=== PATIENT | male | born 1950 | race Caucasian/White ===

== ENCOUNTER 2018-05-07 19:27 | Emergency (ER) | payer MEDICARE, OTHER ==
[~2018-05-07] VITALS: Ht 175.3 cm; Wt 117.9 kg
[2018-05-07 19:55] LABS: BILIRUBIN,URINE NEGATIVE (NEGATIVE); CLARITY,URINE CLEAR; COLOR,URINE YELLOW; GLUCOSE, URINE (UA) NEGATIVE (NEGATIVE); KETONES,URINE NEGATIVE (NEGATIVE); LEUKOCYTE ESTERASE ,URINE NEGATIVE (NEGATIVE); NITRITE,URINE NEGATIVE (NEGATIVE); PH,URINE 5 (5-9); PROTEIN,URINE NEGATIVE (NEGATIVE); UROBILINOGEN,URINE NORMAL (NORMAL)
[2018-05-07 20:04] LABS: WBC,URINE 0-2 /HPF
[2018-05-07 20:05] LABS: BACTERIA,URINE TRACE /HPF
--- NOTE | 2018-05-07 20:31 | Diagnostic Imaging Report ---
INDICATION: Back pain, spasms, more on the right side. TECHNIQUE: AP, lateral and spot imaging of the lumbar spine. CORRELATION STUDY: None. FINDINGS: Lumbar spinal alignment is relatively anatomic. Lumbar vertebral body heights are maintained. Very mild anterior wedging at the L1-T12 levels, nonacute. Mild multilevel disc space narrowing but most severe at L5-S1 level. Rather prominent anterior osteophytes are noted with some areas of bridging osteophytes present. Hypertrophic facet arthropathy at the L5-S1 levels. Findings suspect for some degree of osseous narrowing of the foramina and spinal canal at this level. SI joints are unremarkable. Mild degenerative changes of bilateral hip joints. IMPRESSION: No radiographic evidence for acute bony abnormality of the lumbar spine. Chronic appearing changes about the lumbar spine, including bridging osteophytes and hypertrophic facet arthropathy. Component of foraminal and/or spinal canal narrowing, particularly at the L5-S1 level owing to degenerative changes not excluded. Dictated by: Dictated on workstation # [id number]
--- NOTE | 2018-05-07 20:42 | ED Back Pain ---
General Chief Complaint: Back Problems Stated Complaint: BACK SPASMS/PAIN,"KIDNEY AREA" History of Present Illness Date Seen by Provider: May 07, 2018 Time Seen by Provider: 20:00 Initial Comments 67-year-old male presents for right-sided low back and flank pain. He reports a history of kidney stones, many years ago but it did require surgical removal. He had a stroke in the past with left-sided weakness. He is unsure of his medication and does not have a list with him. [facility] He's been taking ibuprofen for the pain as needed. He reports the pain to be noted when he does a twisting in his low back. He denies any radicular symptoms. Timing/Duration: Intermittent Pain/Injury Location: Back Method of Injury: Unknown Associated Symptoms: muscle spasms (chronic left-sided secondary to CVA.); No numbness in legs/feet, No tingling in legs/feet, No sensory/motor loss; lower back pain; No loss of bladder control, No loss of bowel control Allergies and Home Medications Allergies Coded Allergies: No Known Drug Allergies (Unverified , 05/07/18) Home Medications Tramadol HCl 50 Mg Tablet, 50 MG PO Q8H Prescribed by: FLORENTINO BANG on 05/07/182054 Patient Home Medication List Home Medication List Reviewed: Yes (patient unsure of his medications) Constitutional: no symptoms reported, see HPI Musculoskeletal: see HPI, back pain Past Ggiwfwi-Zqgzjc-Uitjut Hx Patient Social History Alcohol Use: Denies Use Recreational Drug Use: No Smoking Status: Former Smoker Former Smoker, Quit: May 21, 2016 Recent Foreign Travel: No Contact w/Someone Who Travel: No Recent Hopitalizations: No Immunizations Up To Date Tetanus Booster (TDap): Unknown Seasonal Allergies Seasonal Allergies: No Past Medical History Surgeries: Yes (KIDNEY STONE REMOVAL, LEFT KNEE ) Respiratory: No Neurological: Yes (STROKE WITH LEFT SIDE WEAKNESS (MAY 2016)) Stroke Genitourinary: Yes Kidney Stones HEENT: No Cancer: No Psychosocial: No Integumentary: No Blood Disorders: No Physical Exam Vital Signs Vital Signs - First Documented 05/07/18 19:50 Temp 98.2 Pulse 74 Resp 19 B/P (MAP) 123/74 (90) Pulse Ox 94 O2 Delivery Room Air Capillary Refill : Height, Weight, BMI Height: '" Weight: lbs. oz. kg; BMI Method: General Appearance: No Apparent Distress, WD/WN Neck: Full Range of Motion, Normal Inspection, Non Tender Cardiovascular: Regular Rate, Rhythm, No Edema, No Murmur, Normal Peripheral Pulses Respiratory: Chest Non Tender, Lungs Clear, Normal Breath Sounds Gastrointestinal: Normal Bowel Sounds, No Pulsatile Mass, Non Tender, Soft Back: Normal Inspection, No CVA Tenderness (secondary to pain), Decreased Range of Motion, Muscle Spasm, Vertebral Tenderness (lower lumbar) Extremity: Normal Capillary Refill, Normal Inspection, No Pedal Edema Neurologic/Psychiatric: Alert, Oriented x3, No Motor/Sensory Deficits, Normal Mood/Affect Skin: Normal Color, Warm/Dry Progress/Results/Core Measures Results/Orders Lab Results Laboratory Tests Test 05/07/18 19:50 Range/Units Urine Color YELLOW Urine Clarity CLEAR Urine pH 5 5-9 Urine Specific [place] 1.025 H 1.016-1.022 Urine Protein NEGATIVE NEGATIVE Urine Glucose (UA) NEGATIVE NEGATIVE Urine Ketones NEGATIVE NEGATIVE Urine Nitrite NEGATIVE NEGATIVE Urine Bilirubin NEGATIVE NEGATIVE Urine Urobilinogen NORMAL NORMAL MG/DL Urine Leukocyte Esterase NEGATIVE NEGATIVE Urine RBC (Auto) NEGATIVE NEGATIVE Urine RBC NONE /HPF Urine WBC 0-2 /HPF Urine Squamous Epithelial Cells 10-25 H /HPF Urine Crystals NONE /LPF Urine Bacteria TRACE /HPF Urine Casts NONE /LPF Urine Mucus MODERATE H /LPF Urine Culture Indicated NO My Orders Orders - FLORENTINO BANG Ua Culture If Indicated (05/07/18 19:40) Lumbar Spine - 2-3 Views (05/07/18 20:06) Tramadol Tablet (Ultram Tablet) (05/07/18 20:49) Vital Signs/I&O 05/07/18 05/07/18 19:50 21:03 Temp 98.2 98.2 Pulse 74 74 Resp 19 19 B/P (MAP) 123/74 (90) 123/74 (90) Pulse Ox 94 94 O2 Delivery Room Air Progress Progress Note : Time: 20:00 Progress Note Initial evaluation completed, recommended UA to assess for kidney stone. 2014 no RBCs and UA. We'll obtain x-rays of the lumbar spine. 2039 significant degenerative changes in the lumbar spine and bilateral hips on x-ray. No acute processes noted. 2049 discharge instructions and return precautions reviewed with the patient. All questions answered. Diagnostic Imaging Diagonstic Imaging: Xray Plain Films/CT/US/NM/MRI: other (L Spine) Comments NAME: [facility] REC#: [id number] PT STATUS: REG ER : 1950 PHYSICIAN: FLORENTINO BANG ADMIT DATE: 05/07/18/ER Draft Date of Exam:05/07/18 LUMBAR SPINE - 2-3 VIEWS INDICATION: Back pain, spasms, more on the right side. TECHNIQUE: AP, lateral and spot imaging of the lumbar spine. CORRELATION STUDY: None. FINDINGS: Lumbar spinal alignment is relatively anatomic. Lumbar vertebral body heights are maintained. Very mild anterior wedging at the L1-T12 levels, nonacute. Mild multilevel disc space narrowing but most severe at L5-S1 level. Rather prominent anterior osteophytes are noted with some areas of bridging osteophytes present. Hypertrophic facet arthropathy at the L5-S1 levels. Findings suspect for some degree of osseous narrowing of the foramina and spinal canal at this level. SI joints are unremarkable. Mild degenerative changes of bilateral hip joints. IMPRESSION: No radiographic evidence for acute bony abnormality of the lumbar spine. Chronic appearing changes about the lumbar spine, including bridging osteophytes and hypertrophic facet arthropathy. Component of foraminal and/or spinal canal narrowing, particularly at the L5-S1 level owing to degenerative changes not excluded. Dictated on workstation # [id number] Dict: 05/07/182023 Trans: 05/07/182029 [facility] [id number] Interpreted by: JERSON SCHROEDER DO Electronically signed by: Reviewed: Reviewed by Me Departure Impression Primary Impression: Degenerative joint disease (DJD) of lumbar spine Qualified Codes: M47.816 - Spondylosis without myelopathy or radiculopathy, lumbar region Disposition: 01 HOME, SELF-CARE Condition: Improved Departure-Patient Inst. Decision time for Depature: 20:50 Patient Instructions: Low Back Pain (DC) Add. Discharge Instructions: Ice to low back 20 minutes every 2 hours all awake. Increase water intake. Take the tramadol 1 tablet every 8 hours for [id number] pain. Continue to take ibuprofen 600 mg every 8 hours. Follow-up with your primary care provider at the [place] if symptoms are not improving or worsen. Return to the emergency department for new acute health care problems. All discharge instructions reviewed with patient and/or family. Voiced understanding. Scripts Tramadol HCl (Tramadol HCl) 50 Mg Tablet 50 MG PO Q8H, #30 TAB 0 Refills Prov: FLORENTINO BANG 05/07/18 FLORENTINO BANG May 07, 2018 20:42
[2018-05-07] MEDS ORDERED: TRAM50TA2 PO (20:55)
[2018-05-07 21:03] VITALS: BP 123/74
== END 2018-05-07 21:04 | disposition home or self-care (01) ==
LOC: ER 19:32
DX: M47.816 Spondylosis without myelopathy or radiculopathy, lumbar region (principal); Z87.442 Personal history of urinary calculi; Z87.891 Personal history of nicotine dependence; Z86.73 Personal history of transient ischemic attack (TIA), and cerebral infarction without residual deficits
CPT/HCPCS: 72100; 81000

== ENCOUNTER → 2019-06-07 | Outpatient (CLI) | payer MEDICARE, OTHER ==
[~2019-06-07] MED LIST: RT-ALBUTEROL SULF 2.5 MG/3 ML PRE-MIX VIAL INH ONE; TRAM50TA2 PO
== END ==
LOC: RT 12:52
PROVIDERS: ATTEND Nurse Practitioner Family
DX: I63.9 Cerebral infarction, unspecified (principal); R06.89 Other abnormalities of breathing; Z87.891 Personal history of nicotine dependence
CPT/HCPCS: 94060; 94726; 94729

== ENCOUNTER 2019-06-10 20:43 | Outpatient (CLI) | payer MEDICARE, OTHER ==
[~2019-06-10 20:43] MED LIST changes: -RT-ALBUTEROL SULF 2.5 MG/3 ML PRE-MIX VIAL INH ONE
== END 2019-06-11 06:45 | disposition home or self-care (01) ==
LOC: SLEEP 20:43
PROVIDERS: ATTEND Nurse Practitioner Family
DX: G47.33 Obstructive sleep apnea (adult) (pediatric) (principal); I63.9 Cerebral infarction, unspecified
CPT/HCPCS: 95811

== ENCOUNTER → 2022-06-22 | Outpatient (CLI) | payer OTHER ==
[~2022-06-22] MED LIST changes: +CATHETER FLUSH 10 ML SYR IVP PRN; -TRAM50TA2 PO; +TRM50T PO
--- NOTE | 2022-06-22 12:09 | Diagnostic Imaging Report ---
PROCEDURE: CT abdomen and pelvis without contrast. TECHNIQUE: Multiple contiguous axial images were obtained through the abdomen and pelvis without the use of intravenous contrast. Auto Exposure Controls were utilized during the CT exam to meet ALARA standards for radiation dose reduction. INDICATION: Recently diagnosed prostate carcinoma. No prior studies are available for comparison. FINDINGS: Lung bases are clear. The liver and gallbladder are unremarkable. There is no biliary ductal dilatation. Pancreas and spleen are unremarkable. No adrenal mass is detected. The right kidney does contain nonobstructing calculi, largest approximately 5 mm in size. There is a large cyst lower pole right kidney measuring 9.2 x 9.7 cm. Low-attenuation lesion left kidney measures 3.2 cm and is consistent with a cyst. Aorta is mildly calcified but is nonaneurysmal. There is diverticulosis of the descending and sigmoid colon but no evidence of acute diverticulitis. Bladder is unremarkable. Prostate is enlarged. No definite abdominal or pelvic lymphadenopathy is seen. There is no free fluid identified. No osteoblastic lesions are detected. IMPRESSION: 1. Renal cysts. 2. Uncomplicated diverticulosis. 3. Prostatomegaly. 4. No evidence of abdominal or pelvic lymphadenopathy or metastatic disease. Dictated by: Dictated on workstation # [id number]
--- NOTE | 2022-06-22 16:32 | Diagnostic Imaging Report ---
INDICATION: Prostate cancer. TECHNIQUE: The patient received a 26.2 mCi intravenous dose of technetium 99M MDP. After 3 hours, whole-body planar imaging was performed. COMPARISON: No priors for direct comparison; however, the exam is correlated with a CT performed this same date of the abdomen and pelvis. FINDINGS: There is an arthritic pattern of uptake involving the right greater than left knees as well as right greater than left shoulders. A mild degenerative pattern of uptake in the thoracic and mid to lower lumbar spine is present. These areas correlate with bony hypertrophy present at CT. No suspicious radiopharmaceutical accumulation. The calvarium, ribs, sternum, and manubrium are unremarkable. The shafts of the long bones are unremarkable. The bony pelvis is unremarkable. IMPRESSION: Degenerative distribution of the radiopharmacy is present but no suspicious scintigraphic finding. Dictated by: Dictated on workstation # [id number]
== END ==
LOC: CARD 11:14
PROVIDERS: ATTEND Urology
DX: C61 Malignant neoplasm of prostate (principal); N28.1 Cyst of kidney, acquired; K57.30 Diverticulosis of large intestine without perforation or abscess without bleeding
CPT/HCPCS: 74176; 78306

== ENCOUNTER 2022-08-05 12:46 | Outpatient (RCR) | payer OTHER ==
[~2022-08-05 12:46] MED LIST changes: -CATHETER FLUSH 10 ML SYR IVP PRN
[2022-08-05] MEDS ORDERED: LEUPROLIDE 22.5 MG SYRINGE (ELIGARD) SQ SCH (13:45)
== END 2022-08-19 | disposition home or self-care (01) ==
LOC: ONC 12:46
PROVIDERS: ATTEND Internal Medicine Hematology & Oncology
DX: C61 Malignant neoplasm of prostate (principal); I10 Essential (primary) hypertension; E78.5 Hyperlipidemia, unspecified; E66.9 Obesity, unspecified
CPT/HCPCS: 96402

== ENCOUNTER 2022-11-11 05:35 | Outpatient (CLI) | payer OTHER ==
[~2022-11-11] VITALS: Ht 175.3 cm; Wt 113.6 kg
[2022-11-16] MEDS ORDERED: POTA-51 PO (16:21)
[2022-11-16] MEDS ORDERED: AMLO-251 PO (16:21)
[2022-11-16] MEDS ORDERED: LOSA100T3 PO (16:21)
[2022-11-16] MEDS ORDERED: ASPI-999 PO (16:21)
[2022-11-16] MEDS ORDERED: ATOR20TA66 PO (16:21)
[2022-11-16] MEDS ORDERED: PANT40TA52 PO (16:21)
== END 2022-11-16 17:19 | disposition home or self-care (01) ==
LOC: PREOP 05:35
PROVIDERS: ATTEND Radiology Radiation Oncology
DX: Z01.818 Encounter for other preprocedural examination (principal)

== ENCOUNTER → 2022-11-17 | Outpatient (RCR) | payer OTHER ==
[~2022-11-17] MED LIST changes: +AMLO-251 PO; +ASPI-999 PO; +ATOR20TA66 PO; +LEUPROLIDE 22.5 MG SYRINGE (ELIGARD) SQ SCH; +LOSA100T3 PO; +PANT40TA52 PO; +POTA-51 PO
== END | disposition home or self-care (01) ==
LOC: ONC 11-09 10:37
PROVIDERS: ATTEND Internal Medicine Hematology & Oncology
DX: C61 Malignant neoplasm of prostate (principal); I10 Essential (primary) hypertension; E78.5 Hyperlipidemia, unspecified; E66.9 Obesity, unspecified
CPT/HCPCS: 99205

== ENCOUNTER 2022-11-18 05:59 | Day surgery (SDC) | payer OTHER ==
[~2022-11-18] VITALS: Ht 175 cm; Wt 113.6 kg
[2022-11-18] VITALS (10 sets, daily range): BP systolic 112–174; BP diastolic 69–94
[~2022-11-18 05:59] MED LIST changes: -LEUPROLIDE 22.5 MG SYRINGE (ELIGARD) SQ SCH
[2022-11-18] MEDS ORDERED: LACTATED RINGERS 1,000 ML IV PRN (06:45)
--- NOTE | 2022-11-18 07:05 | Progress Note-Pre Operative ---
Pre-Operative Progress Note Date of Available H&P: Nov 09, 2022 Date H&P Reviewed: Nov 18, 2022 Time H&P Reviewed: 07:04 History & Physical: H&P Reviewed, No changes noted Pre-Operative Diagnosis: Prostate cancer cT4, PSA 12, [place] 9-10 / GG 5 PATRICIA WHITE MD Nov 18, 2022 07:05
--- NOTE | 2022-11-18 07:08 | Discharge Inst-Simple/Standard ---
Discharge Inst-Standard Reconcile Patient Problems Problems Reviewed?: Yes Discharge Medications New, Converted or Re-Newed RX: Other (Patient has antibiotics at home.) Patient Instructions/Follow Up Plan of Care/Instructions/FU: 1) Treatment planning CT scan at [facility] cancer center scheduled for 12/02/22 at 10:00 a.m. Please drink 1/2 bottle of oral contrast at 9:30 a.m. Activity as Tolerated: Yes Discharge Diet: No Restrictions PATRICIA WHITE MD Nov 18, 2022 07:07
[2022-11-18] MEDS ORDERED: ONDANSETRON 4 MG/2 ML (SDV) Z0FRAN ONE (07:15)
[2022-11-18] MEDS ORDERED: proPOfol 200 MG/20 ML (DIPRIVAN) VIAL IV ONE (07:15)
[2022-11-18] MEDS ORDERED: LIDOCAINE PF 2% 5 ML (XYLOCAINE) VIAL ONE (07:15)
[2022-11-18] MEDS ORDERED: fentaNYL INJ 100 MCG/2 ML AMP ONE (07:15)
[2022-11-18] MEDS ORDERED: BACITRACIN OINTMENT 28 GM TUBE ONE (07:17)
[2022-11-18] MEDS ORDERED: SEVOFLURANE (ULTANE) 15 ML INHAL SOLN ONE (08:19)
[2022-11-18] MEDS ORDERED: ONDANSETRON 4 MG/2 ML (SDV) Z0FRAN IVP PRN (08:30)
[2022-11-18] MEDS ORDERED: morphine INJ 10 MG/ML 1ML (SYR OR VIAL) IVP ONE (08:30)
--- NOTE | 2022-11-18 09:07 | Progress Note-Post Operative ---
Post-Operative Progess Note Surgeon (s)/Machine Operations Supervisor (s) Surgeon PATRICIA WHITE MD Machine Operations Supervisor: N/A Pre-Operative Diagnosis Prostate cancer cT4, PSA 12, [place] 9-10 / GG 5 Post-Operative Diagnosis Same as pre-op Procedure & Operative Findings Date of Procedure 11/18/22 Procedure Performed/Findings (1) Placement of fiducial gold seed markers (2) Injection of biodegradable hydrogel prostate-rectal spacer utilizing the SpaceOAR system Anesthesia Type General Estimated Blood Loss Estimated blood loss (mL): None Specimens/Packing Specimens Removed None Packing: None PATRICIA WHITE MD Nov 18, 2022 09:07
--- NOTE | 2022-11-18 10:56 | Anesthesia-General Post-Op ---
General Patient Condition Mental Status/LOC: Same as Preop Cardiovascular: Satisfactory Nausea/Vomiting: Absent Respiratory: Satisfactory Pain: Controlled Complications: Absent Post Op Complications Complications None Follow Up Care/Instructions Patient Instructions None needed. Anesthesia/Patient Condition Patient Condition Patient is doing well, no complaints, stable vital signs, no apparent adverse anesthesia problems. No complications reported per nursing. YOSELYN RUGGIERO CRNA Nov 18, 2022 10:56
== END 2022-11-18 10:30 | disposition home or self-care (01) ==
LOC: SDC 05:59
PROVIDERS: ATTEND Radiology Radiation Oncology
DX: C61 Malignant neoplasm of prostate (principal); R97.20 Elevated prostate specific antigen [PSA]; G47.33 Obstructive sleep apnea (adult) (pediatric); Z99.81 Dependence on supplemental oxygen
CPT/HCPCS: 87081

== ENCOUNTER → 2022-12-18 | Outpatient (RCR) | payer OTHER ==
[2022-12-15 11:59] LABS: BASOPHILS % (AUTO) 1 % (0-10); EOSINOPHILS # (AUTO) 0.1 10^3/uL (0.0-0.3); EOSINOPHILS % (AUTO) 1 % (0-10); HEMATOCRIT 45 % (40-54); LYMPHOCYTES # (AUTO) 2.4 10^3/uL (1.0-4.0); LYMPHOCYTES % (AUTO) 33 % (12-44); MEAN CORPUSCULAR HEMOGLOBIN 30 pg (25-34); MEAN CORPUSCULAR HGB CONC 34 g/dL (32-36); MEAN CORPUSCULAR VOLUME 91 fL (80-99); MEAN PLATELET VOLUME 11.8 fL (9.0-12.2); MONOCYTES # (AUTO) 0.4 10^3/uL (0.0-1.0); MONOCYTES % (AUTO) 5 % (0-12); NEUTROPHILS # (AUTO) 4.3 10^3/uL (1.8-7.8); NEUTROPHILS % (AUTO) 59 % (42-75); PLATELET COUNT 171 10^3/uL (130-400); WHITE BLOOD COUNT 7.2 10^3/uL (4.3-11.0)
[2022-12-15 12:21] LABS: ALBUMIN 4.2 GM/DL (3.2-4.5); BILIRUBIN,TOTAL 0.6 MG/DL (0.1-1.0); CALCIUM 9.4 MG/DL (8.5-10.1); CREATININE SERUM 1.16 MG/DL (0.60-1.30); POTASSIUM 4.5 MMOL/L (3.6-5.0); TOTAL PROTEIN 7.4 GM/DL (6.4-8.2)
[~2022-12-18] MED LIST changes: -LOSA100T3 PO; +LOSA100T4 PO
== END | disposition home or self-care (01) ==
LOC: ONC 12-02 09:46
PROVIDERS: ATTEND Internal Medicine Hematology & Oncology
DX: Z51.0 Encounter for antineoplastic radiation therapy (principal); C61 Malignant neoplasm of prostate; I10 Essential (primary) hypertension; E78.5 Hyperlipidemia, unspecified; E66.9 Obesity, unspecified
CPT/HCPCS: 36415; 77300; 77301; 77334; 77336; 77338; 77385; 80053; 85025

== ENCOUNTER 2023-01-15 11:46 | Outpatient (RCR) | payer OTHER ==
[2022-12-22 12:57] LABS: ALBUMIN 4.3 GM/DL (3.2-4.5); BILIRUBIN,TOTAL 0.7 MG/DL (0.1-1.0); CALCIUM 9.8 MG/DL (8.5-10.1); CREATININE SERUM 1.17 MG/DL (0.60-1.30); POTASSIUM 4.1 MMOL/L (3.6-5.0); TOTAL PROTEIN 7.7 GM/DL (6.4-8.2)
[2022-12-29 12:58] LABS: ALBUMIN 4.2 GM/DL (3.2-4.5); BILIRUBIN,TOTAL 0.7 MG/DL (0.1-1.0); CALCIUM 9.6 MG/DL (8.5-10.1); CREATININE SERUM 1.27 MG/DL (0.60-1.30); POTASSIUM 3.7 MMOL/L (3.6-5.0); TOTAL PROTEIN 7.5 GM/DL (6.4-8.2)
[2023-01-05 12:31] LABS: BASOPHILS % (AUTO) 1 % (0-10); EOSINOPHILS # (AUTO) 0.1 10^3/uL (0.0-0.3); EOSINOPHILS % (AUTO) 1 % (0-10); HEMATOCRIT 43 % (40-54); HEMOGLOBIN 14.6 g/dL (13.3-17.7); LYMPHOCYTES # (AUTO) 1.2 10^3/uL (1.0-4.0); LYMPHOCYTES % (AUTO) 20 % (12-44); MEAN CORPUSCULAR HEMOGLOBIN 31 pg (25-34); MEAN CORPUSCULAR HGB CONC 34 g/dL (32-36); MEAN CORPUSCULAR VOLUME 90 fL (80-99); MEAN PLATELET VOLUME 11.4 fL (9.0-12.2); MONOCYTES # (AUTO) 0.5 10^3/uL (0.0-1.0); MONOCYTES % (AUTO) 8 % (0-12); NEUTROPHILS # (AUTO) 4.2 10^3/uL (1.8-7.8); NEUTROPHILS % (AUTO) 70 % (42-75); PLATELET COUNT 145 10^3/uL (130-400); WHITE BLOOD COUNT 5.9 10^3/uL (4.3-11.0)
[2023-01-05 12:48] LABS: ALBUMIN 4.2 GM/DL (3.2-4.5); BILIRUBIN,TOTAL 0.8 MG/DL (0.1-1.0); CALCIUM 9.4 MG/DL (8.5-10.1); CREATININE SERUM 1.11 MG/DL (0.60-1.30); POTASSIUM 3.9 MMOL/L (3.6-5.0); TOTAL PROTEIN 7.5 GM/DL (6.4-8.2)
== END 2023-01-17 | disposition home or self-care (01) ==
LOC: ONC 11:46
PROVIDERS: ATTEND Internal Medicine Hematology & Oncology
DX: Z51.0 Encounter for antineoplastic radiation therapy (principal); C61 Malignant neoplasm of prostate; I10 Essential (primary) hypertension; E78.5 Hyperlipidemia, unspecified; E66.9 Obesity, unspecified
CPT/HCPCS: 36415; 77300; 77336; 77385; 80053; 84153; 85025

== ENCOUNTER 2023-02-11 11:47 | Outpatient (RCR) | payer OTHER ==
[~2023-02-11 11:47] MED LIST changes: +LEUPROLIDE 22.5 MG SYRINGE (ELIGARD) SQ SCH
== END 2023-02-17 | disposition home or self-care (01) ==
LOC: ONC 11:47
PROVIDERS: ATTEND Internal Medicine Hematology & Oncology
DX: Z51.0 Encounter for antineoplastic radiation therapy (principal); C61 Malignant neoplasm of prostate; I10 Essential (primary) hypertension; E78.5 Hyperlipidemia, unspecified; E66.9 Obesity, unspecified
CPT/HCPCS: 77336; 77385; 96402

== ENCOUNTER 2023-04-13 11:15 | Outpatient (RCR) | payer OTHER ==
[~2023-04-13 11:15] MED LIST changes: -LEUPROLIDE 22.5 MG SYRINGE (ELIGARD) SQ SCH; +POTA-330 PO; -POTA-51 PO
[2023-04-13 12:09] LABS: BASOPHILS # (AUTO) 0.1 10^3/uL (0.0-0.1); BASOPHILS % (AUTO) 1 % (0-10); EOSINOPHILS # (AUTO) 0.1 10^3/uL (0.0-0.3); EOSINOPHILS % (AUTO) 1 % (0-10); HEMATOCRIT 37 % (40-54); HEMOGLOBIN 12.3 g/dL (13.3-17.7); LYMPHOCYTES % (AUTO) 17 % (12-44); MEAN CORPUSCULAR HEMOGLOBIN 32 pg (25-34); MEAN CORPUSCULAR HGB CONC 34 g/dL (32-36); MEAN CORPUSCULAR VOLUME 96 fL (80-99); MEAN PLATELET VOLUME 11.2 fL (9.0-12.2); MONOCYTES # (AUTO) 0.5 10^3/uL (0.0-1.0); MONOCYTES % (AUTO) 8 % (0-12); NEUTROPHILS # (AUTO) 4.1 10^3/uL (1.8-7.8); NEUTROPHILS % (AUTO) 73 % (42-75); PLATELET COUNT 157 10^3/uL (130-400); WHITE BLOOD COUNT 5.7 10^3/uL (4.3-11.0)
[2023-04-13 12:36] LABS: ALBUMIN 4.1 GM/DL (3.2-4.5); BILIRUBIN,TOTAL 0.8 MG/DL (0.1-1.0); CALCIUM 9.6 MG/DL (8.5-10.1); CREATININE SERUM 1.33 MG/DL (0.60-1.30); POTASSIUM 3.2 MMOL/L (3.6-5.0); TOTAL PROTEIN 7.3 GM/DL (6.4-8.2)
== END 2023-04-19 | disposition home or self-care (01) ==
LOC: ONC 11:15
PROVIDERS: ATTEND Internal Medicine Hematology & Oncology
DX: C61 Malignant neoplasm of prostate (principal); I10 Essential (primary) hypertension; E78.5 Hyperlipidemia, unspecified; E66.9 Obesity, unspecified
CPT/HCPCS: 80053; 84153; 85025; 99213

== ENCOUNTER 2023-04-27 11:19 | Outpatient (RCR) | payer OTHER ==
[~2023-04-27 11:19] MED LIST changes: +LEUPROLIDE 22.5 MG SYRINGE (ELIGARD) SQ SCH
== END 2023-05-20 | disposition home or self-care (01) ==
LOC: ONC 11:19
PROVIDERS: ATTEND Internal Medicine Hematology & Oncology
DX: Z51.11 Encounter for antineoplastic chemotherapy (principal); C61 Malignant neoplasm of prostate; I10 Essential (primary) hypertension; E78.5 Hyperlipidemia, unspecified; E66.9 Obesity, unspecified
CPT/HCPCS: 96402

== ENCOUNTER → 2023-07-07 | Outpatient (CLI) | payer OTHER ==
[~2023-07-07] MED LIST changes: -LEUPROLIDE 22.5 MG SYRINGE (ELIGARD) SQ SCH; +LOSA-417 PO; -LOSA100T4 PO
--- NOTE | 2023-07-07 17:21 | Diagnostic Imaging Report ---
INDICATION: Fall one month ago, unable to move left arm. TECHNIQUE: AP and lateral views of the left humerus CORRELATION STUDY: None FINDINGS: There is no acute fracture. Visualized shoulder and elbow appear generally unremarkable. There is somewhat heterogeneous appearance about the right humerus. Perhaps early bony demineralization. No findings to suggest underlying reparative changes. IMPRESSION: 1. Negative for acute bony abnormality of the humerus. Dictated by: Dictated on workstation # [id number]
--- NOTE | 2023-07-07 17:23 | Diagnostic Imaging Report ---
INDICATION: Fall about a month ago, stroke, unable to move left arm. TECHNIQUE: Three views of the left shoulder CORRELATION STUDY: None FINDINGS: The left humeral head is slightly inferior to relation to the glenoid. There is cortical irregularity that appears to originate off the likely posterior aspect of the glenoid. The humeral head appears to be intact. The acromioclavicular joint maintained. The visualized soft tissues are unremarkable. IMPRESSION: 1. Slight inferior subluxation of the humeral head in relation to the glenoid. No christiane dislocation. 2. Findings do suggest probable fracture of the posterior bony glenoid. Age indeterminate. If further assessment desired, CT imaging would be recommended. Dictated by: Dictated on workstation # [id number]
== END ==
LOC: RAD 10:33
PROVIDERS: ATTEND Hospitalist
DX: M25.512 Pain in left shoulder (principal)
CPT/HCPCS: 73030; 73060

== ENCOUNTER → 2023-07-20 | Outpatient (RCR) | payer OTHER ==
[2023-07-06 11:11] LABS: BASOPHILS % (AUTO) 1 % (0-10); EOSINOPHILS # (AUTO) 0.1 10^3/uL (0.0-0.3); EOSINOPHILS % (AUTO) 1 % (0-10); HEMATOCRIT 44 % (40-54); HEMOGLOBIN 14.2 g/dL (13.3-17.7); LYMPHOCYTES # (AUTO) 1.2 10^3/uL (1.0-4.0); LYMPHOCYTES % (AUTO) 20 % (12-44); MEAN CORPUSCULAR HEMOGLOBIN 32 pg (25-34); MEAN CORPUSCULAR HGB CONC 33 g/dL (32-36); MEAN CORPUSCULAR VOLUME 97 fL (80-99); MEAN PLATELET VOLUME 11.6 fL (9.0-12.2); MONOCYTES # (AUTO) 0.4 10^3/uL (0.0-1.0); MONOCYTES % (AUTO) 7 % (0-12); NEUTROPHILS # (AUTO) 4.2 10^3/uL (1.8-7.8); NEUTROPHILS % (AUTO) 71 % (42-75); PLATELET COUNT 158 10^3/uL (130-400); WHITE BLOOD COUNT 5.9 10^3/uL (4.3-11.0)
[2023-07-06 11:35] LABS: ALBUMIN 4.1 GM/DL (3.2-4.5); BILIRUBIN,TOTAL 0.9 MG/DL (0.1-1.0); CALCIUM 9.4 MG/DL (8.5-10.1); CREATININE SERUM 1.32 MG/DL (0.60-1.30); POTASSIUM 3.4 MMOL/L (3.6-5.0); TOTAL PROTEIN 7.3 GM/DL (6.4-8.2)
[~2023-07-20] MED LIST changes: +LEUPROLIDE 22.5 MG SYRINGE (ELIGARD) SQ SCH
== END | disposition home or self-care (01) ==
LOC: ONC 07-06 10:53
PROVIDERS: ATTEND Internal Medicine Hematology & Oncology
DX: C61 Malignant neoplasm of prostate (principal); I10 Essential (primary) hypertension; E78.5 Hyperlipidemia, unspecified; E66.9 Obesity, unspecified
CPT/HCPCS: 36415; 80053; 84153; 85025; 96402; 99214